=== PATIENT | male | born 1935 | race Caucasian/White ===

== ENCOUNTER → 2018-03-12 | Outpatient (CLI) | payer MEDICARE ==
[~2018-03-12] MED LIST: 00186-0370-20 IH; ACCUPRIL20TAB PO; ACCUPRIL40MGTAB PO; ALDACTONE 25MG25 M1 PO; ASPIRIN 81M81 MG/TA2 PO; CIPRO 500MG TA500 MG PO; COLACE 100100 MG/CAP PO; COZAAR 50MG50 MG/TAB PO; CRESTOR20 MG PO; DOXYCYCLINE 10100 MG PO; FLEXERIL5 MG PO; FLOMAX 0.40.4 MG/CAP PO; FOLIC ACID 11 MG/TA1 PO; LIPITOR 40MG TA40 MG PO; METHOTREXA2.5 MG/TAB PO; NITROSTAT0.4 MG/TAB SL; NORCO 325 MG-51 TAB PO; NORVASC 5MG5 MG/TAB PO; PERCOCET 325 MG1 TA2 PO; TOPROL XL 50MG50 MG PO; TYLENOL 500MG500 MG PO; VENTOLIN0.09 MG IH; VITAMIND3 5000; ZOCOR 40MG40 MG PO
== END ==
LOC: ZCOL.LAB 12:06
DX: L97.529 Non-pressure chronic ulcer of other part of left foot with unspecified severity (principal)

== ENCOUNTER 2018-03-14 21:07 | Inpatient (IN) | payer MEDICARE ==
[~2018-03-14] VITALS: Ht 167.6 cm; Wt 68.4 kg
[~2018-03-14 21:07] MED LIST changes: -COZAAR 50MG50 MG/TAB PO; -FOLIC ACID 11 MG/TA1 PO; -LIPITOR 40MG TA40 MG PO; -METHOTREXA2.5 MG/TAB PO; -TYLENOL 500MG500 MG PO; -VITAMIND3 5000; -ZOCOR 40MG40 MG PO
[2018-03-14 21:47] LABS: BASO # 0.1 (0.0-0.2); BASO % 0.5 % (0.0-2.0); EOS # 0.2 (0.0-0.7); EOS % 0.9 % (0-4.0); GRAN # 15.3 (1.4-6.5); GRAN % 83.6 % (42.2-75.2); HEMATOCRIT 49.3 % (42.0-52.0); HEMOGLOBIN 15.7 g/dl (13.5-18.0); LYMPH # 1.6 (1.2-3.4); LYMPH % 8.8 % (20.0-51.0); MEAN CELL VOLUME 97 fl (80.0-100.0); MEAN CORPUSCULAR HEMOGLOBIN 31 pg (27.0-31.0); MEAN CORPUSCULAR HGB CONC 32 g/dl (33.0-37.0); MEAN PLATELET VOLUME 9.4 fl (7.4-10.4); MONO % 5.4 % (1.7-9.3); PLATELET COUNT 280 K/mm3 (130-400); RED BLOOD COUNT 5.06 M/mm3 (4.20-5.60); REDCELL DISTRIBUTION WIDTH-CV 13.2 % (11.5-14.5)
[2018-03-14 21:58] LABS: ALBUMIN 4.2 gm/dL (3.5-5.0); BILIRUBIN,TOTAL 0.5 mg/dL (0.0-1.0); CALCIUM 9.4 mg/dL (8.4-10.2); CREATININE, serum 1.01 mg/dL (0.66-1.25); POTASSIUM 4.7 mmol/L (3.4-5.0); TOTAL PROTEIN 9.6 gm/dL (6.4-8.2)
[2018-03-14 22:17] LABS: TROPONIN-I 0.416 ng/mL (0.000-0.034)
[2018-03-14] MEDS ORDERED: TYLENOL 500MG500 MG PO (22:35)
[2018-03-14] MEDS ORDERED: COZAAR 50MG50 MG/TAB PO (22:39)
[2018-03-14] MEDS ORDERED: FOLIC ACID 11 MG/TA1 PO (22:39)
[2018-03-14] MEDS ORDERED: VITAMIND3 5000 (22:39)
[2018-03-14] MEDS ORDERED: METHOTREXA2.5 MG/TAB PO (22:57)
[2018-03-14] MEDS ORDERED: ZOCOR 40MG40 MG PO (22:57)
[2018-03-14] MEDS ORDERED: NORVASC 5MG5 MG/TAB PO (22:58)
[2018-03-14] MEDS ORDERED: 00186-0370-20 IH (22:59)
[2018-03-14] MEDS ORDERED: LIPITOR 40MG TA40 MG PO (22:59)
[2018-03-14] MEDS ORDERED: ASPIRIN 81M81 MG/TA2 PO (22:59)
[2018-03-14] MEDS ORDERED: TOPROL XL 50MG50 MG PO (23:00)
[2018-03-14] MEDS ORDERED: ACCUPRIL20TAB PO (23:00)
[2018-03-14] MEDS ORDERED: ALDACTONE 25MG25 M1 PO (23:00)
[2018-03-14] MEDS ORDERED: FLOMAX 0.40.4 MG/CAP PO (23:01)
[2018-03-14] MEDS ORDERED: VENTOLIN0.09 MG IH (23:01)
[2018-03-14 23:16] LABS: COLLECTION METHOD CLEAN CATCH
[2018-03-14 23:28] LABS: MUCOUS Present /lpf; PH 5 (5-8); URINE APPEARANCE Cloudy; URINE BACTERIA Rare /hpf; URINE BILIRUBIN Negative (NEGATIVE); URINE BLOOD Negative (NEGATIVE); URINE COLOR Amber; URINE GLUCOSE 2+ (NEGATIVE); URINE KETONE Trace (NEGATIVE); URINE LEUKOCYTE ESTERASE 1+ (NEGATIVE); URINE NITRATE Negative (NEGATIVE); URINE PROTEIN(semi-quant) 3+ (NEGATIVE)
[2018-03-15] VITALS (909 sets, daily range): BP systolic 105–146; BP diastolic 52–82; PULSE 70–106; TEMP 98–98.4; O2SAT 65–100
[2018-03-15] MEDS ORDERED: NITROSTAT0.4 MG/TAB SL (00:58)
[2018-03-16 03:46] VITALS: BP 96/52; PULSE 95; TEMP 98.7
[2018-03-16 09:24] VITALS: BP 109/57; PULSE 52; TEMP 97.3
[2018-03-16 12:03] VITALS: BP 91/56; PULSE 104; TEMP 98.6
[2018-03-16 16:47] VITALS: BP 104/81; PULSE 51; TEMP 97.9
[2018-03-16 19:46] VITALS: BP 116/58; PULSE 103; TEMP 97.9
[2018-03-16 23:59] VITALS: BP 99/40; PULSE 97; TEMP 98.8
[2018-03-17 03:53] VITALS: BP 90/47; PULSE 90; TEMP 98.2
[2018-03-17 04:40] LABS: BASO # 0.1 (0.0-0.2); BASO % 0.8 % (0.0-2.0); EOS # 0.3 (0.0-0.7); EOS % 3.7 % (0-4.0); GRAN # 4.6 (1.4-6.5); GRAN % 63.8 % (42.2-75.2); LYMPH # 1.5 (1.2-3.4); LYMPH % 20.5 % (20.0-51.0); MEAN CELL VOLUME 95 fl (80.0-100.0); MEAN CORPUSCULAR HGB CONC 33 g/dl (33.0-37.0); MEAN PLATELET VOLUME 9.3 fl (7.4-10.4); MONO # 0.8 (0.1-0.6); MONO % 10.9 % (1.7-9.3); RED BLOOD COUNT 3.62 M/mm3 (4.20-5.60); REDCELL DISTRIBUTION WIDTH-CV 13.2 % (11.5-14.5)
[2018-03-17 04:43] LABS: HEMATOCRIT 34.3 % (42.0-52.0); HEMOGLOBIN 11.3 g/dl (13.5-18.0); MEAN CORPUSCULAR HEMOGLOBIN 31 pg (27.0-31.0); PLATELET COUNT 164 K/mm3 (130-400)
[2018-03-17 05:14] LABS: CALCIUM 8.2 mg/dL (8.4-10.2); CREATININE, serum 0.7 mg/dL (0.66-1.25); POTASSIUM 3.9 mmol/L (3.4-5.0)
[2018-03-17 08:00] VITALS: BP 94/50; PULSE 92; TEMP 98.4
[2018-03-17 08:30] VITALS: BP 123/44; PULSE 51; TEMP 99.2
[2018-03-17 10:12] VITALS: BP 94/50; PULSE 92; TEMP 98.4
[2018-03-17 12:08] VITALS: BP 130/54; PULSE 50; TEMP 98
[2018-03-17] MEDS ORDERED: FLOMAX 0.40.4 MG/CAP PO (16:26)
[2018-03-17] MEDS ORDERED: RANEXA 500MG T500 MG PO (16:27)
[2018-03-17] MEDS ORDERED: PLAVIX 75MG TAB75 MG PO (16:27)
[2018-03-17] MEDS ORDERED: CLEOCIN HCL300 MG PO (16:29)
== END 2018-03-17 17:55 | disposition home or self-care (01) | DRG 281 ==
LOC: COL.ER 21:07 → ICU 22:53 → MEDICAL 03-15 20:23 → ICU 03-15 20:23 → MEDICAL 03-17 17:55
PROVIDERS: Emergency Medicine; Internal Medicine Pulmonary Disease
PROC: B2111ZZ Fluoroscopy of Multiple Coronary Arteries using Low Osmolar Contrast (ICD-10-PCS; principal; 2018-03-16)
PROC: B3101ZZ Fluoroscopy of Thoracic Aorta using Low Osmolar Contrast (ICD-10-PCS; 2018-03-16)
PROC: B2151ZZ Fluoroscopy of Left Heart using Low Osmolar Contrast (ICD-10-PCS; 2018-03-16)
DX: I21.4 Non-ST elevation (NSTEMI) myocardial infarction (principal); E87.2 Acidosis; M86.171 Other acute osteomyelitis, right ankle and foot; I25.10 Atherosclerotic heart disease of native coronary artery without angina pectoris; J44.9 Chronic obstructive pulmonary disease, unspecified; E11.65 Type 2 diabetes mellitus with hyperglycemia; E11.69 Type 2 diabetes mellitus with other specified complication; L97.519 Non-pressure chronic ulcer of other part of right foot with unspecified severity; F17.210 Nicotine dependence, cigarettes, uncomplicated
CPT/HCPCS: 99222; 99232-AI; 99238; A9585; C1760; C1769; C1894; G0278; J0690; J0696; J1650; J1815; J2250; J3010; J3370; J7030; J7050

== ENCOUNTER → 2018-03-19 | Outpatient (CLI) | payer MEDICARE ==
[~2018-03-19] MED LIST changes: +CLEOCIN HCL300 MG PO; +COZAAR 50MG50 MG/TAB PO; +FOLIC ACID 11 MG/TA1 PO; +LIPITOR 40MG TA40 MG PO; +METHOTREXA2.5 MG/TAB PO; +PLAVIX 75MG TAB75 MG PO; +RANEXA 500MG T500 MG PO; +TYLENOL 500MG500 MG PO; +VITAMIND3 5000; +ZOCOR 40MG40 MG PO
== END ==
LOC: COL.RAD 12:28
DX: I71.4 Abdominal aortic aneurysm, without rupture (principal); I70.203 Unspecified atherosclerosis of native arteries of extremities, bilateral legs; I74.8 Embolism and thrombosis of other arteries; I74.5 Embolism and thrombosis of iliac artery; E27.9 Disorder of adrenal gland, unspecified; K80.20 Calculus of gallbladder without cholecystitis without obstruction
CPT/HCPCS: Q9967

== ENCOUNTER → 2018-05-24 | Outpatient (CLI) | payer MEDICARE | LOC: COL.RAD 08:57 | DX: I67.82 Cerebral ischemia (principal); F01.50 Vascular dementia, unspecified severity, without behavioral disturbance, psychotic disturbance, mood disturbance, and anxiety; G31.9 Degenerative disease of nervous system, unspecified ==

== ENCOUNTER → 2018-12-26 | Outpatient (CLI) | payer MEDICARE | LOC: COL.RAD 11:03 | DX: Z01.818 Encounter for other preprocedural examination (principal); I71.4 Abdominal aortic aneurysm, without rupture; I74.09 Other arterial embolism and thrombosis of abdominal aorta; K80.20 Calculus of gallbladder without cholecystitis without obstruction; K43.9 Ventral hernia without obstruction or gangrene; J47.9 Bronchiectasis, uncomplicated; N21.0 Calculus in bladder; Z90.89 Acquired absence of other organs | CPT/HCPCS: Q9967 ==

== ENCOUNTER → 2019-07-31 | Outpatient (CLI) | payer MEDICARE | LOC: COL.RAD 12:51 | DX: Z01.812 Encounter for preprocedural laboratory examination (principal); I71.4 Abdominal aortic aneurysm, without rupture; K55.1 Chronic vascular disorders of intestine; I70.1 Atherosclerosis of renal artery | CPT/HCPCS: Q9967 ==

== ENCOUNTER 2020-11-17 12:42 | Emergency (ER) | payer MEDICARE ==
[~2020-11-17] VITALS: Ht 170.2 cm; Wt 68.6 kg
[2020-11-17 12:47] VITALS: TEMP 98.4
[2020-11-17 13:15] LABS: ARTERIAL BLD GAS O2 SATURATION 96.3 % (92-100); ARTERIAL BLD GAS TCO2 CT 33.9; ARTERIAL BLOOD GAS BASE EXCESS 5.8 (-2-2); ARTERIAL BLOOD GAS HCO3 32.2 meq/L (22-26); ARTERIAL BLOOD GAS PCO2 54.7 mmHg (35-45); ARTERIAL BLOOD GAS PO2 86.2 mmHg (80-100); ARTERIAL BLOOD GAS pH 7.39 (7.35-7.45)
[2020-11-17 13:53] LABS: BASO # 0.1 (0.0-0.2); BASO % 0.9 % (0.0-2.0); EOS # 0.5 (0.0-0.7); EOS % 6.7 % (0-4.0); GRAN # 4.4 (1.4-6.5); GRAN % 58.6 % (42.2-75.2); HEMATOCRIT 41.8 % (42.0-52.0); HEMOGLOBIN 13.1 g/dl (13.5-18.0); LYMPH # 1.7 (1.2-3.4); LYMPH % 23.1 % (20.0-51.0); MEAN CELL VOLUME 98 fl (80.0-100.0); MEAN CORPUSCULAR HEMOGLOBIN 31 pg (27.0-31.0); MEAN CORPUSCULAR HGB CONC 31 g/dl (33.0-37.0); MEAN PLATELET VOLUME 10.1 fl (7.4-10.4); MONO # 0.8 (0.1-0.6); MONO % 10.4 % (1.7-9.3); PLATELET COUNT 245 K/mm3 (130-400); RED BLOOD COUNT 4.26 M/mm3 (4.20-5.60); REDCELL DISTRIBUTION WIDTH-CV 14.1 % (11.5-14.5)
[2020-11-17 14:13] LABS: INR 1.2 (0.8-3.0); PROTHROMBIN TIME 12.9 SECONDS (9.7-12.8)
[2020-11-17] MEDS ORDERED: LASIX 40MG TABL40 MG PO (14:37)
[2020-11-17 14:41] LABS: ALANINE AMINOTRANSFERASE 18 U/L (4-49); ALBUMIN 3.7 gm/dL (3.5-5.0); ALKALINE PHOSPHATASE 73 U/L (50-136); ANION GAP 7 mmol/L (7-16); AST,SGOT 28 U/L (15-37); BILIRUBIN,TOTAL 0.4 mg/dL (0.0-1.0); BLOOD UREA NITROGEN 23 mg/dL (9-20); CALCIUM 8.8 mg/dL (8.4-10.2); CARBON DIOXIDE 35 mmol/L (22-30); CHLORIDE 102 mmol/L (98-107); CREATININE, serum 1.08 (0.66-1.25); GLUCOSE 102 mg/dL (74-106); POTASSIUM 3.7 mmol/L (3.4-5.0); SODIUM 144 mmol/L (137-145); TOTAL PROTEIN 7.7 gm/dL (6.4-8.2)
[2020-11-17 14:43] LABS: C-REACTIVE PROTEIN 0.5 mg/dL (0.0-0.9)
[2020-11-17 14:51] LABS: TROPONIN-I < 0.012 ng/mL (0.000-0.035)
[2020-11-17] MEDS ORDERED: CLEOCIN HCL300 MG PO (15:23)
[2020-11-17 16:00] VITALS: BP 143/79; PULSE 68
== END 2020-11-17 16:25 | disposition home or self-care (01) ==
LOC: COL.ER 12:42
PROVIDERS: Emergency Medicine
DX: T17.928A Food in respiratory tract, part unspecified causing other injury, initial encounter (principal); J44.9 Chronic obstructive pulmonary disease, unspecified; E78.5 Hyperlipidemia, unspecified; Z20.828 Contact with and (suspected) exposure to other viral communicable diseases; Z79.02 Long term (current) use of antithrombotics/antiplatelets; Z79.51 Long term (current) use of inhaled steroids; Z79.82 Long term (current) use of aspirin
CPT/HCPCS: J7030